=== PATIENT | female | born 1995 | race Caucasian/White ===

== ENCOUNTER 2021-03-23 22:08 | Emergency (ER) | payer OTHER ==
[2021-03-23 22:52] LABS: HEMOGLOBIN 13.7 gm/dl (12.3-15.3); RED BLOOD COUNT 4.25 M/UL (4.00-5.10); WHITE BLOOD COUNT 7.5 K/UL (4.5-11.0)
[2021-03-23 23:09] LABS: BUN/CREATININE RATIO 9 (0-10)
[2021-03-24] MEDS ORDERED: MOTION SICKNESS25 MG PO (00:55)
[2021-03-24] MEDS ORDERED: CEPHALEXIN500 M1 PO (00:55)
[2021-03-24] MEDS ORDERED: ONDANSETRON ODT4 MG SL (00:55)
== END 2021-03-24 01:10 | disposition home or self-care (01) ==
LOC: ER1 22:08
PROVIDERS: Emergency Medicine
DX: N39.0 Urinary tract infection, site not specified (principal); D64.9 Anemia, unspecified; Z90.49 Acquired absence of other specified parts of digestive tract; F17.200 Nicotine dependence, unspecified, uncomplicated
CPT/HCPCS: 80053; 81001; 83690; 84703; 85025; 99284